=== PATIENT | male | born 1950 | race Caucasian/White ===

== ENCOUNTER → 2016-11-07 | Outpatient (CLI) | payer OTHER ==
[2016-11-07 16:11] LABS: POC - CREATININE 0.91 mg/dL (0.64-1.27); POC - GFR >60.0 mL/min (>60)
== END | disposition home or self-care (01) ==
LOC: CMRI 14:35
PROVIDERS: Psychiatry & Neurology Neurology
DX: M54.12 Radiculopathy, cervical region (principal)
CPT/HCPCS: 82565